=== PATIENT | male | born 1990 | race Two or more races ===

== ENCOUNTER 2023-04-04 21:35 | Inpatient (IN) | payer MEDICAID, OTHER ==
[~2023-04-04] VITALS: Ht 167.6 cm; Wt 83.2 kg
[2023-04-05 00:49] LABS: BASOPHILS % (AUTO) 0.6 % (0.0-2.0); EOSINOPHILS % (AUTO) 0.4 % (1.0-6.0); HEMATOCRIT 43.4 % (41-53); HEMOGLOBIN 14.8 g/dL (13.5-17.5); LYMPHOCYTES # (AUTO) 2.2 K/uL (1.0-4.8); LYMPHOCYTES % (AUTO) 27.7 % (22.0-44.0); MEAN CORPUSCULAR HEMOGLOBIN 31.6 pg (26.0-34.0); MEAN CORPUSCULAR HGB CONC 34.1 G/dL (31.0-37.0); MEAN CORPUSCULAR VOLUME 93 fL (80-100); MONOCYTES # (AUTO) 0.3 K/uL (0.1-1.0); MONOCYTES % (AUTO) 3.5 % (2.0-9.0); NEUTROPHILS # (AUTO) 5.4 K/uL (1.8-7.7); NEUTROPHILS % (AUTO) 67.8 % (40.0-70.0); PLATELET COUNT (AUTO) 257 K/uL (150-450); RED BLOOD CELL COUNT(AUTO) 4.69 MIL/uL (4.50-5.90); RED CELL DISTRIBUTION WIDTH 13.4 % (11.5-14.5); WHITE BLOOD COUNT (AUTO) 7.9 K/uL (4.5-11.0)
[2023-04-05 00:52] LABS: ANION GAP 13 mmol/L (8-16); CALCIUM, TOTAL 8.5 mg/dL (8.8-10.5); CARBON DIOXIDE 25 mmol/L (22-29); CHLORIDE 105 mmol/L (98-107); CREATININE 0.75 mg/dL (0.60-1.30); GLOMERULAR FILTR. RATE CALC > 60 mL/min (>60); GLUCOSE,RANDOM 77 mg/dL (70-110); POTASSIUM 3.7 mmol/L (3.5-5.1); SODIUM SERUM 143 mmol/L (136-145); UREA NITROGEN, BLOOD 15 mg/dL (7-18)
[2023-04-05 00:58] LABS: ALANINE AMINOTRANSFERASE 35 U/L (12-78); ALBUMIN 4.5 g/dL (3.4-5.0); ALKALINE PHOSPHATASE 58 U/L (46-116); ASPARTATE AMINOTRANSFERASE 30 U/L (15-37); BILIRUBIN,TOTAL 0.3 mg/dL (0.1-1.0); TOTAL PROTEIN, SERUM 7.3 g/dL (6.4-8.2)
[2023-04-05 01:07] LABS: ALCOHOL, BLOOD (SERUM) 176 mg/dL (0-10)
[2023-04-05 02:04] LABS: COVID AG,FIA SOURCE NASAL SWAB
[2023-04-05 02:25] LABS: SARS-COV2 (COVID) ANTIGEN,FIA Negative (Negative)
[2023-04-05] MEDS ORDERED: HydrOXYzine PAMOATE 50 MG CAPSULE PO PRN (06:15)
[2023-04-05] MEDS ORDERED: ZOLPIDEM TARTRATE 10 MG TABLET PO PRN (06:15)
[2023-04-05] MEDS ORDERED: TUBERCULIN, PURIFIED PROTEIN DERIVATIVE 5 TU/0.1 ML SYRINGE ID ONE (06:15)
[2023-04-05] MEDS ORDERED: OLANZapine 5 MG RAPDIS TABLET PO PRN (06:15)
[2023-04-05] MEDS ORDERED: GuaiFENesin/D-METHORPHAN [SUGAR-FREE] 200-20MG/10 ML SYRUP UDCUP PO PRN (06:15)
[2023-04-05] MEDS ORDERED: LORazepam 2 MG TABLET PO PRN (06:15)
[2023-04-05] MEDS ORDERED: MAG HYDROX/ALUMINUM HYD/SIMETH ES 30 ML SUSPENSION UDCUP PO PRN (06:15)
[2023-04-05] MEDS ORDERED: PROMETHAZINE HCL 25 MG TABLET PO PRN (06:15)
[2023-04-05] MEDS ORDERED: ACETAMINOPHEN 325 MG TABLET PO PRN (06:15)
[2023-04-05] MEDS ORDERED: LOPERAMIDE HCL 2 MG CAPSULE PO PRN ×2 (06:15)
[2023-04-05] MEDS ORDERED: MAGNESIUM HYDROXIDE SUSPENSION 30 ML UDCUP PO PRN (06:15)
[2023-04-05] MEDS: MULTIVITAMINS WITH MINERALS, THERAPEUTIC TABLET PO SCH (08:30)
[2023-04-05] MEDS: NALTREXONE HCL 50 MG TABLET PO SCH (08:31)
[2023-04-05] MEDS: FOLIC ACID 1 MG TABLET PO SCH (08:31)
[2023-04-05] MEDS: THIAMINE 100 MG TABLET PO SCH (08:31)
[2023-04-05] MEDS: LORazepam 2 MG TABLET PO PRN (08:31)
[2023-04-05] MEDS: CYANOCOBALAMIN 1,000 MCG/ML VIAL IM ONE (08:32)
[2023-04-05] MEDS: OMEGA-3/DHA/EPA/FISH OIL 1,000 MG CAPSULE PO SCH (08:32)
[2023-04-05 08:58] LABS: PH,URINE DRUG SCREEN 5.5 (5.0-8.0)
[2023-04-05 09:04] LABS: ALCOHOL, URINE DRUG SCREEN POSITIVE (NEGATIVE); AMPHET/METH SCREEN,URINE NEGATIVE (NEGATIVE); BARBITURATE SCREEN, URINE NEGATIVE (NEGATIVE); BENZODIAZEPINES SCREEN,URINE NEGATIVE (NEGATIVE); CANNABINOID SCREEN,URINE POSITIVE (NEGATIVE); COCAINE SCREEN,URINE NEGATIVE (NEGATIVE); METHADONE SCREEN, URINE NEGATIVE (NEGATIVE); OPIATE SCREEN,URINE NEGATIVE (NEGATIVE); PHENCYCLIDINE SCREEN,URINE NEGATIVE (NEGATIVE)
[2023-04-05] MEDS ORDERED: INFLUENZA VIRUS VACCINE QVS 2023-24 (6MO+)/PF 60 MCG/0.5 ML SYRINGE IM. ONE (17:30)
[2023-04-05 20:05] VITALS: BP 124/72; PULSE 89; RESP 18; TEMP 97.8; O2SAT 98
[2023-04-05] MEDS: MIRTAZAPINE 15 MG TABLET PO SCH (20:11)
[2023-04-05] MEDS: MELATONIN 5 MG TABLET PO SCH (20:11)
[2023-04-06] MEDS ORDERED: LORazepam 2 MG TABLET PO PRN (07:00)
[2023-04-06 08:08] VITALS: BP 119/68; PULSE 74; RESP 18; TEMP 97.7; O2SAT 97
[2023-04-06] MEDS: LORazepam 2 MG TABLET PO SCH (08:29)
[2023-04-06 08:45] LABS: HEMOGLOBIN A1C 5.3 % (3.8-5.6)
[2023-04-06 08:58] LABS: FREE T4 (FREE THYROXINE) 0.93 ng/dL (0.76-1.46); THYROID STIMULATING HORMONE 1.5 uIU/mL (0.36-3.74)
[2023-04-06] MEDS ORDERED: MELA5TAB40 PO (17:42)
[2023-04-06] MEDS ORDERED: NALT50TA33 PO (17:42)
[2023-04-06] MEDS ORDERED: MIRT-89 PO (17:42)
[2023-04-06] MEDS ORDERED: OMEG-135 PO (17:42)
[2023-04-08] MEDS ORDERED: LORazepam 1 MG TABLET PO PRN (07:00)
[2023-04-08] MEDS ORDERED: LORazepam 1 MG TABLET PO SCH (09:00)
[2023-04-09] MEDS ORDERED: LORazepam 1 MG TABLET PO PRN (07:00)
== END 2023-04-06 18:00 | disposition home or self-care (01) | DRG 751 ==
LOC: EMS 21:36 → B3A 04-05 14:49
PROVIDERS: ADMIT Psychiatry & Neurology Psychiatry; ATTEND Psychiatry & Neurology Psychiatry
DX: F32.2 Major depressive disorder, single episode, severe without psychotic features (principal); R45.851 Suicidal ideations; F41.9 Anxiety disorder, unspecified; G47.00 Insomnia, unspecified; Z20.822 Contact with and (suspected) exposure to COVID-19; Z55.9 Problems related to education and literacy, unspecified; Z65.3 Problems related to other legal circumstances; K59.00 Constipation, unspecified; Z72.0 Tobacco use
CPT/HCPCS: 80053; 80061; 80307; 83036; 84439; 84443; 85025; 86592; G0480; J3420; Q9967

== ENCOUNTER 2024-12-03 20:44 | Inpatient (IN) | payer MEDICAID ==
[~2024-12-03] VITALS: Ht 170.2 cm; Wt 83.5 kg
[~2024-12-03 20:44] MED LIST: MELA5TAB40 PO; MIRT-89 PO; NALT50TA33 PO; OMEG-135 PO
[2024-12-03 23:19] LABS: COVID AG,FIA SOURCE NPH
[2024-12-03 23:27] LABS: PLATELET COUNT (AUTO) 307 K/uL (150-450); RED BLOOD CELL COUNT(AUTO) 5.32 MIL/uL (4.50-5.90); RED CELL DISTRIBUTION WIDTH 13.3 % (11.5-14.5); WHITE BLOOD COUNT (AUTO) 7.4 K/uL (4.5-11.0)
[2024-12-03 23:28] VITALS: O2SAT 97
[2024-12-03 23:32] LABS: APPEARANCE,URINE CLEAR (CLEAR); GLUCOSE, URINE (UA) NEGATIVE (NEGATIVE); LEUKOCYTE ESTERASE ,URINE NEGATIVE (NEGATIVE); NITRATE,URINE NEGATIVE (NEGATIVE); OCCULT BLOOD,URINE MODERATE (NEGATIVE); PH,URINE DRUG SCREEN 5.0 (5.0-8.0); SPECIFIC GRAVITIY, URINE 1.022 (1.003-1.030)
[2024-12-03 23:34] LABS: CALCIUM, TOTAL 9.1 mg/dL (8.8-10.5); CREATININE 0.77 mg/dL (0.60-1.30); GLOMERULAR FILTR. RATE CALC > 60 mL/min (>60); GLUCOSE,RANDOM 92 mg/dL (70-110); SODIUM SERUM 143 mmol/L (136-145); UREA NITROGEN, BLOOD 12 mg/dL (7-18)
[2024-12-03 23:39] LABS: SARS-COV2 (COVID) ANTIGEN,FIA Negative (Negative)
[2024-12-03 23:42] LABS: ALCOHOL, URINE DRUG SCREEN POSITIVE (NEGATIVE); AMPHET/METH SCREEN,URINE NEGATIVE (NEGATIVE); BARBITURATE SCREEN, URINE NEGATIVE (NEGATIVE); CANNABINOID SCREEN,URINE POSITIVE (NEGATIVE); COCAINE SCREEN,URINE NEGATIVE (NEGATIVE); METHADONE SCREEN, URINE NEGATIVE (NEGATIVE)
[2024-12-03 23:50] LABS: SQUAMOUS EPITHELIAL CELL,UR Few /LPF (None Seen)
[2024-12-04] VITALS (9 sets, daily range): BP systolic 110–138; BP diastolic 63–88; PULSE 67–114; RESP 16–18; TEMP 97.5–98.7; O2SAT 98–100
[2024-12-04] MEDS ORDERED: ZOLPIDEM TARTRATE 10 MG TABLET PO PRN (00:45)
[2024-12-04] MEDS ORDERED: PROMETHAZINE HCL 25 MG TABLET PO PRN (09:45)
[2024-12-04] MEDS ORDERED: MAGNESIUM HYDROXIDE SUSPENSION 30 ML UDCUP PO PRN (09:45)
[2024-12-04] MEDS ORDERED: LOPERAMIDE HCL 2 MG CAPSULE PO PRN (09:45)
[2024-12-04] MEDS ORDERED: ACETAMINOPHEN 325 MG TABLET PO PRN (09:45)
[2024-12-04] MEDS ORDERED: MAG HYDROX/ALUMINUM HYD/SIMETH ES 30 ML SUSPENSION UDCUP PO PRN (09:45)
[2024-12-04] MEDS ORDERED: GuaiFENesin/D-METHORPHAN [SUGAR-FREE] 200-20MG/10 ML SYRUP UDCUP PO PRN (09:45)
[2024-12-04] MEDS: TOPIRAMATE 25 MG TABLET PO SCH (12:23)
[2024-12-04] MEDS: GABAPENTIN 100 MG CAPSULE PO SCH (12:23)
[2024-12-04] MEDS: CYANOCOBALAMIN 1,000 MCG/ML VIAL IM ONE (12:23)
[2024-12-04] MEDS: THIAMINE 100 MG TABLET PO SCH (16:23)
[2024-12-04] MEDS: MELATONIN 5 MG TABLET PO SCH (20:57)
[2024-12-04] MEDS: MIRTAZAPINE 15 MG TABLET PO SCH (21:13)
[2024-12-05 07:54] VITALS: BP 135/83; PULSE 97; RESP 17; TEMP 97.7; O2SAT 97
[2024-12-05 08:11] VITALS: BP 125/90; PULSE 70; RESP 16; TEMP 97.7; O2SAT 100
[2024-12-05] MEDS: NALTREXONE HCL 50 MG TABLET PO SCH (08:41)
[2024-12-05] MEDS: MULTIVITAMINS WITH MINERALS, THERAPEUTIC TABLET PO SCH (08:41)
[2024-12-05] MEDS: FOLIC ACID 1 MG TABLET PO SCH (08:41)
[2024-12-05 09:02] LABS: CHOL/HDL RATIO 2.4 (4.2-7.3); LDL CHOL (CALC.) 92.0 mg/dL (0-130)
[2024-12-05 10:30] VITALS: BP 114/88; PULSE 67; RESP 17; TEMP 97; O2SAT 98
[2024-12-05 15:34] VITALS: BP 110/59; PULSE 42; PULSE 66; RESP 17; TEMP 98.4; O2SAT 99
[2024-12-05] MEDS ORDERED: GABA-1216 PO (15:59)
[2024-12-05] MEDS ORDERED: MIRT-89 PO (15:59)
[2024-12-05] MEDS ORDERED: NALT50TA33 PO (15:59)
[2024-12-05] MEDS ORDERED: TOPI25 PO (15:59)
[2024-12-05] MEDS ORDERED: MELA5TAB40 PO (15:59)
[2024-12-05 18:33] VITALS: BP 114/76; PULSE 73; RESP 17; TEMP 98.5; O2SAT 99
[2024-12-05 20:04] VITALS: BP 129/87; PULSE 60; RESP 16; TEMP 97.8; O2SAT 98
[2024-12-06 08:02] VITALS: BP 128/83; PULSE 83; RESP 16; TEMP 98.6; O2SAT 100
[2024-12-06 10:25] VITALS: BP 128/83; PULSE 83; RESP 16; TEMP 98.6; O2SAT 100
[2024-12-06] MEDS: GABAPENTIN 300 MG CAPSULE PO SCH (16:44)
[2024-12-06 20:17] VITALS: BP 117/77; PULSE 93; RESP 18; TEMP 98.1; O2SAT 99
[2024-12-06 20:21] VITALS: BP 117/77; PULSE 93; RESP 18; TEMP 98.1; O2SAT 99
[2024-12-07 08:00] VITALS: BP 127/80; PULSE 76; RESP 19; TEMP 97.8; O2SAT 96
[2024-12-07 08:03] VITALS: BP 127/80; PULSE 76; RESP 19; TEMP 97.8; O2SAT 96
[2024-12-07] MEDS ORDERED: LOPERAMIDE HCL 2 MG CAPSULE PO PRN (09:45)
[2024-12-07] MEDS ORDERED: GABA-1181 PO (14:28)
[2024-12-07] MEDS ORDERED: TOPI25 PO (14:32)
[2024-12-07] MEDS: TOPIRAMATE 25 MG TABLET PO SCH (16:55)
[2024-12-07 20:00] VITALS: BP 121/75; PULSE 71; RESP 18; TEMP 98
[2024-12-07 20:10] VITALS: BP 101/70; PULSE 60; RESP 17; TEMP 97.3; O2SAT 99
[2024-12-08] MEDS: INFLUENZA VIRUS VACCINE TVS (6MO+) 2025-26/PF 45 MCG/0.5 ML SYRINGE IM. ONE (06:20)
[2024-12-08 08:20] VITALS: BP 105/72; PULSE 61; RESP 18; TEMP 97.6; O2SAT 99
[2024-12-08 20:15] VITALS: BP 117/80; PULSE 69; RESP 17; TEMP 98.2; O2SAT 99
[2024-12-08 20:16] VITALS: BP 117/80; PULSE 69; RESP 17; TEMP 98.2; O2SAT 99
[2024-12-09 08:17] VITALS: BP 110/84; PULSE 87; RESP 16; TEMP 97.2; O2SAT 99
[2024-12-09] MEDS: OLANZapine 5 MG RAPDIS TABLET PO PRN (12:58)
[2024-12-09 20:14] VITALS: BP 103/76; PULSE 63; RESP 18; TEMP 97.5; O2SAT 99
[2024-12-10 08:07] VITALS: BP 107/67; PULSE 65; RESP 17; TEMP 97.3; O2SAT 98
[2024-12-10] MEDS: GABAPENTIN 400 MG CAPSULE PO SCH (16:30)
[2024-12-10 20:02] VITALS: BP 139/78; PULSE 87; RESP 18; TEMP 98.2; O2SAT 98
[2024-12-10] MEDS: MIRTAZAPINE 30 MG TABLET PO SCH (20:12)
[2024-12-11 08:02] VITALS: BP 123/77; PULSE 72; RESP 17; TEMP 97.5; O2SAT 100
== END 2024-12-11 11:15 | DRG 751 ==
LOC: EMS 20:44 → B3A 12-04 02:13
PROVIDERS: ADMIT Psychiatry & Neurology Psychiatry; ATTEND Psychiatry & Neurology Psychiatry
PROC: GZHZZZZ Group Psychotherapy (ICD-10-PCS; principal; 2024-12-04)
PROC: GZ58ZZZ Individual Psychotherapy, Cognitive-Behavioral (ICD-10-PCS; 2024-12-04)
PROC: GZ56ZZZ Individual Psychotherapy, Supportive (ICD-10-PCS; 2024-12-04)
DX: F33.2 Major depressive disorder, recurrent severe without psychotic features (principal); R45.851 Suicidal ideations; F10.20 Alcohol dependence, uncomplicated; Y90.6 Blood alcohol level of 120-199 mg/100 ml; Z20.822 Contact with and (suspected) exposure to COVID-19; F12.90 Cannabis use, unspecified, uncomplicated; F17.200 Nicotine dependence, unspecified, uncomplicated; Z55.9 Problems related to education and literacy, unspecified; Z59.9 Problem related to housing and economic circumstances, unspecified; Z63.9 Problem related to primary support group, unspecified; Z65.3 Problems related to other legal circumstances
CPT/HCPCS: 80048; 80061; 80307; 81001; 83036; 85025; 86592; 90686; 99285; G0480; J3420